=== PATIENT | male | born 1955 | race Caucasian/White ===

== ENCOUNTER 2018-07-13 17:05 | Emergency (ER) | payer OTHER ==
[2018-07-13 17:38] VITALS: RESP 18; TEMP 98; BMI 26.5
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
[2018-07-13 20:21] VITALS: BP 136/86; PULSE 96; O2SAT 95
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
== END 2018-07-13 21:31 | disposition home or self-care (01) ==
LOC: ED 17:05
DX: S16.1XXA Strain of muscle, fascia and tendon at neck level, initial encounter (principal); S39.012A Strain of muscle, fascia and tendon of lower back, initial encounter; V49.49XA Driver injured in collision with other motor vehicles in traffic accident, initial encounter; Y92.410 Unspecified street and highway as the place of occurrence of the external cause; Z98.1 Arthrodesis status